=== PATIENT | male | born 1985 | race Caucasian/White ===

== ENCOUNTER 2017-11-23 11:08 | Emergency (ER) | payer OTHER ==
[~2017-11-23] VITALS: Ht 182.9 cm; Wt 118.0 kg
--- OUTSIDE RECORDS SUMMARY | ~2017-11-23 | XMS | Clinical Summary ---
Demographics + + + | Address | [address] | | | [place] [address] | + + + | Home Phone | | + + + | Preferred Language | Unknown | + + + | Marital Status | Single | + + + | Yazidism Affiliation | 1013 | + + + | Race | Unknown | + + + | Ethnic Group | Unknown | + + + Author + + + | Author | [facility] [facility] | + + + | Organization [...] Team Providers + +------+ + | Care Tank Officer Name | Role | Phone | + +------+ + | Medicine, [place] | PP | Unavailable | | Family | | | + +------+ + Allergies + + [...]
--- OUTSIDE RECORDS SUMMARY | ~2017-11-23 | XMS | Clinical Summary ---
Demographics + + + | Address | [address] | | | [place] [address] | + + + | Home Phone | | + + + | Preferred Language | Unknown | + + + | Marital Status | Single | + + + | Jainism Affiliation | 1013 | + + + | Race | Unknown | + + + | Ethnic Group | Unknown | + + + Author + + + | Author | [facility] [facility] | + + + | Organization [...] Team Providers + +------+ + | Care Hop Strainer Name | Role | Phone | + +------+ + | Medicine, [place] | PP | Unavailable | | Family [...]
[~2017-11-23 11:08] MED LIST: FLEXERIL10 MG PO; HYDROCODON-ACE1 EAC8 PO; TYLENOL EXTRA500 MG PO; ULTRAM50 MG PO
[2017-11-23] MEDS ORDERED: BACTRIM DS TAB1 EACH PO (11:58)
== END 2017-11-23 12:05 | disposition home or self-care (01) ==
LOC: ED 11:08
DX: L25.8 Unspecified contact dermatitis due to other agents (principal); B96.89 Other specified bacterial agents as the cause of diseases classified elsewhere; F17.200 Nicotine dependence, unspecified, uncomplicated; Z88.0 Allergy status to penicillin
CPT/HCPCS: 99283

== ENCOUNTER 2018-07-08 11:09 | Emergency (ER) | payer OTHER ==
[~2018-07-08] VITALS: Ht 182.9 cm; Wt 109.0 kg
--- OUTSIDE RECORDS SUMMARY | ~2018-07-08 | XMS | Clinical Summary ---
Demographics + + + | Address | [address] | | | [place] [address] | + + + | Home Phone | | + + + | Preferred Language | Unknown | + + + | Marital Status | Single | + + + | Alevism Affiliation | 1013 | + + + | Race | Unknown | + + + | Ethnic Group | Unknown | + + + Author + + + | Author | [facility] [facility] | + + + | Organization | [facility] | + + + | Address | Unknown | + + + | Phone | Unavailable | + + + Support + + +---------+ + | Name | Relationship | Address | Phone | + + +---------+ + | Day [place] | ECON | Unknown | | + + +---------+ + Care Team Providers + +------+ + | Care Costume Shop Coordinator Name | Role | Phone | + +------+ + | Dr. Kaylin | PP | Unavailable | + +------+ + Allergies + + + + + + | Active Allergy | Reactions | Severity | Noted | Comments | | | | | Date | | + + + + + + | Penicillins | Rash | Medium | 09/12/19 | | | | | | 12 | | + + + + + + Current Medications No known medications Active Problems Not on file Social History + +-------+ +--------+------+ | Tobacco Use | Types | Packs/Day | Years | Date | | | | | Used | | + +-------+ +--------+------+ | Never Assessed | | | | | + +-------+ +--------+------+ + + + | Sex Assigned at | Date Recorded | | | | + + + | Not on file | | + + + Last Filed Vital Signs + + + + | Vital Sign | Reading | Time Taken | + + + + | Blood Pressure | 117/68 | 09/13/2011 1:00 PM PDT | + + + + | Pulse | 53 | 09/13/2011 1:00 PM PDT | + + + + | Temperature | 37.8 C (100 F) | 09/13/2011 1:00 PM PDT | + + + + | Respiratory Rate | 18 | 09/13/2011 1:00 PM PDT | + + + + | Oxygen Saturation | 100% | 09/13/2011 1:00 PM PDT | + + + + | Inhaled Oxygen | - | - | | Concentration | | | + + + + | Weight | 91 kg (200 lb 11.2 | 09/13/2011 9:47 AM PDT | | | oz) | | + + + + | Height | 182.9 cm (6') | 09/12/2011 11:19 AM PDT | + + + + | Body Mass Index | 27.22 | 09/13/2011 9:47 AM PDT | + + + + Plan of Treatment Not on file Results Not on filefrom Last 3 Months"
--- OUTSIDE RECORDS SUMMARY | ~2018-07-08 | XMS | Clinical Summary ---
Demographics + + + | Address | [address] | | | [place] [address] | + + + | Home Phone | | + + + | Preferred Language | Unknown | + + + | Marital Status | Single | + + + | Catholic Affiliation | 1013 | + + + | Race | Unknown | + + + | Ethnic Group | Unknown | + + + Author + + + | Author | [facility] [facility] | + + + | Organization [...] Providers + +------+ + | Care Tank Processor Name | Role | Phone | + [...]
[~2018-07-08 11:09] MED LIST changes: +BACTRIM DS TAB1 EACH PO
--- OUTSIDE RECORDS SUMMARY | 2018-07-08 11:12 | XMS ---
PreManage Notification: CARMITA HALL Security Supervisor Plastic Sheets Events No recent Security Events currently on file CRITERIA MET - Group Notification CARE PROVIDERS OLGA WATTERS Physician Access Control Officer 11/28/2017-Current PHONE: [phone] Kylah has no Care Guidelines for this patient. EGloria VISIT COUNT (12 MO.) 2 [facility] TOTAL 2 NOTE: Visits indicate total known visits. ED/UCC VISIT TRACKING (12 MO.) 07/08/2018 11:10 [facility] TYPE: Emergency COMPLAINT: - BLOOD IN STOOL/ABD PAIN 11/23/2017 11:09 [facility] TYPE: Emergency COMPLAINT: - POSS ABSCESS DIAGNOSES: - Allergy status to penicillin - Nicotine dependence, unspecified, uncomplicated - Other specified bacterial agents as the cause of diseases classified elsewhere - Other specified disorders of penis - Unspecified contact dermatitis due to other agents INPATIENT VISIT TRACKING (12 MO.) No inpatient visits to display in this time frame [id number]
[2018-07-08] MEDS ORDERED: MINOCYCLINE HC100 MG PO (11:36)
== END 2018-07-08 14:12 | disposition home or self-care (01) ==
LOC: ED 11:09
DX: K62.5 Hemorrhage of anus and rectum (principal); F17.200 Nicotine dependence, unspecified, uncomplicated; Z88.0 Allergy status to penicillin
CPT/HCPCS: 80053; 85025; 99283

== ENCOUNTER 2020-03-18 15:52 | Emergency (ER) | payer OTHER ==
[~2020-03-18] VITALS: Ht 182.9 cm; Wt 106.7 kg
[~2020-03-18 15:52] MED LIST changes: +MINOCYCLINE HC100 MG PO
[2020-03-18] MEDS ORDERED: CYCLOBENZAPRINE10 MG PO (19:07)
[2020-03-18] MEDS ORDERED: PREDNISONE20 MG PO (19:07)
[2020-03-18] MEDS ORDERED: NORCO 5-325 TA1 EACH PO (19:07)
== END 2020-03-18 19:20 | disposition home or self-care (01) ==
LOC: ED 15:52
DX: S39.012A Strain of muscle, fascia and tendon of lower back, initial encounter (principal); X50.9XXA Other and unspecified overexertion or strenuous movements or postures, initial encounter; F17.200 Nicotine dependence, unspecified, uncomplicated; Z88.0 Allergy status to penicillin
CPT/HCPCS: 72100; 96374; 96375; 99283-25; J1100; J1885

== ENCOUNTER 2022-12-15 09:59 | Emergency (ER) | payer OTHER ==
[~2022-12-15] VITALS: Ht 182.9 cm; Wt 102.6 kg
--- OUTSIDE RECORDS SUMMARY | ~2022-12-15 | XMS | Continuity of Care Document ---
Demographics + + + | Address | [address] | | | [place] [address] | + + + | Preferred Language | Unknown | + + + | Marital Status | Polygamous | + + + | Orthodox Affiliation | Unknown | + + + | Race | White | + + + | Ethnic Group | Not or | + + + Author + + + | Author | [facility] | + + + | Organization | [facility] | + + + | Address | [address] | | | [place] [address] | + + + | Phone | | + + + Care Team Providers + + + + | Care Component Inspector Name | Role | Phone | + + + + Unavailable | Unavailable | + + + + Unavailable | Unavailable | + + + + Allergies and Intolerances + + + + + + | date | description | facility | reaction | severity | + + + + + + | (no date) | Rash | [facility] | (no reaction) | (no severity) | [facility] | | | + + + + + + | (no date) | Penicillin | [facility] | (no reaction) | (no severity) | | [facility] | | | + + + + + + | (no date) | Penicillin | [facility] | (no reaction) | (no severity) | | [facility] | | | + + + + + + | (no date) | Penicillins | [facility] | (no reaction) | (no severity) | + + + + + + | (no date) | Penicillin | [facility] | (no reaction) | (no severity) | | [facility] | | | + + + + + + | (no date) | Penicillin | [facility] | (no reaction) | (no severity) | | [facility] | | | + + + + + + Encounters No information. Functional Status No information. Immunizations No information. Medications + + + + | date | description | facility | + + + + | 2022-09-27 00:00 | MINOCYCLINE HCL | [facility] | + + + + | 2022-09-27 00:00 | ACETAMINOPHEN | [facility] | + + + + | 2022-09-27 00:00 | CYCLOBENZAPRINE HCL | [facility] | + + + + | 2015-05-07 00:00 | TRAMADOL HCL | [facility] | + + + + | 2017-11-23 00:00 | | [facility] | | | SULFAMETHOXAZOLE/TRIMETHOPR | | | | IM DS | | + + + + | 2013-03-30 00:00 | HYDROCODONE | [facility] | | | BIT/ACETAMINOPHEN | | + + + + Problems + + + + | date | description | facility | + + + + | 2015-04-13 00:00 | Hematochezia | [facility] | + + + + | 2017-11-23 00:00 | Dermatitis | [facility] | + + + + | 2017-11-23 00:00 | Encounter for medical | [facility] | | | screening examination | | + + + + | 2018-07-08 00:00 | Bright red blood per | [facility] | | | rectum | | + + + + | 2020-03-18 00:00 | Acute myofascial strain of | [facility] | | | lumbar region | | + + + + | 2021-07-26 00:00 | Patient left without being | [facility] | | | seen | | + + + + | 2022-09-27 00:00 | Non-ST elevation | [facility] | | | myocardial infarction | | | | (NSTEMI) | | + + + + | 2022-09-27 07:35 | NICOTINE DEPENDENCE, | [facility] | | | UNSPECIFIED, UNCOMPLICATED | | + + + + | 2022-09-27 07:35 | NON-ST ELEVATION (NSTEMI) | [facility] | | | MYOCARDIAL INFARCTION | | + + + + | 2022-09-27 07:35 | CHEST PAIN, UNSPECIFIED | [facility] | + + + + | 2022-09-27 07:35 | ALLERGY STATUS TO | [facility] | | | PENICILLIN | | + + + + | 2022-10-21 08:40 | NON-ST ELEVATION (NSTEMI) | [facility] | | | MYOCARDIAL INF | | + + + + | 2022-10-21 08:40 | NON-ST ELEVATION (NSTEMI) | [facility] | | | MYOCARDIAL INFARCTION | | + + + + | 2022-10-21 08:40 | PRESENCE OF CORONARY | [facility] | | | ANGIOPLASTY IMPLANT | | + + + + | 2022-10-21 09:00 | NON-ST ELEVATION (NSTEMI) | [facility] | | | MYOCARDIAL INF | | + + + + | 2022-10-21 09:00 | PRESENCE OF CORONARY | [facility] | | | ANGIOPLASTY IMPLANT | | + + + + Procedures No information. Results/Labs +--------+--------+ +---------+--------+---------+ | test | date | facility | value | unit | notes | +--------+--------+ +---------+--------+---------+ + + | Result panel 1 | + + + + + +--------+ + + | | 2022-09-27 | [facility] | 13.2 | (missing) | (missing) | | (unavailable | [facility] | | | | + + + +--------+ + + + + | Result panel 2 | + + + + + +--------+ + + | | 2022-09-27 | [facility] | 71.8 | (missing) | (missing) | | (unavailable | [facility] | | | | + + + +--------+ + + + + | Result panel 3 | + + + + + +--------+ + + | | 2022-09-27 | [facility] | 18.2 | (missing) | (missing) | | (unavailable | [facility] | | | | + + + +--------+ + + + + | Result panel 4 | + + + + + +-------+ + + | | 2022-09-27 | [facility] | 8.0 | (missing) | (missing) | | (unavailable | [facility] | | | | + + + +-------+ + + + + | Result panel 5 | + + + + + +-------+ + + | | 2022-09-27 | [facility] | 1.2 | (missing) | (missing) | | (unavailable | [facility] | | | | + + + +-------+ + + + + | Result panel 6 | + + + + + +-------+ + + | | 2022-09-27 | [facility] | 0.8 | (missing) | (missing) | | (unavailable | [facility] | | | + + + +-------+ + + + + | Result panel 7 | + + + + + +-------+---------+ + | | 2022-09-27 | [facility] | 116 | mg/dL | (missing) | | (unavailable | [facility] | | | + + + +-------+---------+ + + + | Result panel 8 | + + + + + +------+---------+ + | | 2022-09-27 | [facility] | 12 | mg/dL | (missing) | | (unavailable | [facility] | | | | + + + +------+---------+ + + + | Result panel 9 | + + + + + +--------+---------+ + | | 2022-09-27 | [facility] | 1.11 | mg/dL | (missing) | | (unavailable | [facility] | | | + + + +--------+---------+ + + + | Result panel 10 | + + + + + +------+ + + | | 2022-09-27 | [facility] | 87 | (missing) | (missing) | | (unavailable | [facility] | | | + + + +------+ + + + + | Result panel 11 | + + + + + +---------+ + + | | 2022-09-27 | [facility] | 10.81 | (missing) | (missing) | | (unavailable | [facility] | | | + + + +---------+ + + + + | Result panel 12 | + + + + + +--------+ + + | | 2022-09-27 | [facility] | 5.33 | (missing) | (missing) | | (unavailable | [facility] | | | + + + +--------+ + + + + | Result panel 13 | + + + + + +-------+ + + | | 2022-09-27 | [facility] | 136 | (missing) | (missing) | | (unavailable | [facility] | | | + + + +-------+ + + + + | Result panel 14 | + + + + + +-------+ + + | | 2022-09-27 | [facility] | 3.5 | (missing) | (missing) | | (unavailable | [facility] | | | + + + +-------+ + + + + | Result panel 15 | + + + + + +-------+ + + | | 2022-09-27 | [facility] | 100 | (missing) | (missing) | | (unavailable | [facility] | | | + + + +-------+ + + + + | Result panel 16 | + + + + + +------+ + + | | 2022-09-27 | [facility] | 27 | (missing) | (missing) | | (unavailable | [facility] | | | + + + +------+ + + + + | Result panel 17 | + + + + + +--------+ + + | | 2022-09-27 | [facility] | 12.5 | (missing) | (missing) | | (unavailable | [facility] | | | + + + +--------+ + + + + | Result panel 18 | + + + + + +-------+---------+ + | | 2022-09-27 | [facility] | 8.8 | mg/dL | (missing) | | (unavailable | [facility] | | | + + + +-------+---------+ + + + | Result panel 19 | + + + + + +-------+---------+ + | | 2022-09-27 | [facility] | 2.1 | mg/dL | (missing) | | (unavailable | [facility] | | | + + + +-------+---------+ + + + | Result panel 20 | + + + + + +-------+ + + | | 2022-09-27 | [facility] | 7.5 | (missing) | (missing) | | (unavailable | [facility] | | | + + + +-------+ + + + + | Result panel 21 | + + + + + +-------+ + + | | 2022-09-27 | [facility] | 3.7 | (missing) | (missing) | | (unavailable | [facility] | | | + + + +-------+ + + + + | Result panel 22 | + + + + + +-------+ + + | | 2022-09-27 | [facility] | 3.8 | (missing) | (missing) | | (unavailable | [facility] | | | + + + +-------+ + + + + | Result panel 23 | + + + + + +--------+ + + | | 2022-09-27 | [facility] | 16.8 | (missing) | (missing) | | (unavailable | [facility] | | | + + + +--------+ + + + + | Result panel 24 | + + + + + +--------+ + + | | 2022-09-27 | [facility] | 0.97 | (missing) | (missing) | | (unavailable | [facility] | | | + + + +--------+ + + + + | Result panel 25 | + + + + + +-------+ + + | | 2022-09-27 | [facility] | 1.3 | (missing) | (missing) | | (unavailable | [facility] | | | + + + +-------+ + + + + | Result panel 26 | + + + + + +------+ + + | | 2022-09-27 | [facility] | 43 | (missing) | (missing) | | (unavailable | [facility] | | | + + + +------+ + + + + | Result panel 27 | + + + + + +------+ + + | | 2022-09-27 | [facility] | 33 | (missing) | (missing) | | (unavailable | [facility] | | | + + + +------+ + + + + | Result panel 28 | + + + + + +------+ + + | | 2022-09-27 | [facility] | 75 | (missing) | (missing) | | (unavailable | [facility] | | | + + + +------+ + + + + | Result panel 29 | + + + + + +------+ + + | | 2022-09-27 | [facility] | 67 | (missing) | (missing) | | (unavailable | [facility] | | | + + + +------+ + + + + | Result panel 30 | + + + + + + + + + | | 2022-09-27 | [facility] | 2509.3 | (missing) | (missing) | | (unavailable | [facility] | | | + + + + + + + + + | Result panel 31 | + + + + + +--------+ + + | | 2022-09-27 | [facility] | 49.6 | (missing) | (missing) | | (unavailable | [facility] | | | + + + +--------+ + + + + | Result panel 32 | + + + + + +--------+ + + | | 2022-09-27 | [facility] | 93.1 | (missing) | (missing) | | (unavailable | [facility] | | | + + + +--------+ + + + + | Result panel 33 | + + + + + +--------+ + + | | 2022-09-27 | [facility] | 31.5 | (missing) | (missing) | | (unavailable | [facility] | | | + + + +--------+ + + + + | Result panel 34 | + + + + + +--------+ + + | | 2022-09-27 | [facility] | 33.8 | (missing) | (missing) | | (unavailable | [facility] | | | + + + +--------+ + + + + | Result panel 35 | + + + + + +--------+ + + | | 2022-09-27 | [facility] | 13.3 | (missing) | (missing) | | (unavailable | [facility] | | | + + + +--------+ + + + + | Result panel 36 | + + + + + +-------+ + + | | 2022-09-27 | [facility] | 244 | (missing) | (missing) | | (unavailable | [facility] | | | + + + +-------+ + + Social History No information. Vital Signs + + + +---------+ | date | measurement | value | units | + + + +---------+ | 2022-09-27 00:00 | BMI | 30.7 | kg/m2 | + + + +---------+ | 2022-09-27 00:00 | BP_diastolic | 83 | mmHg | + + + +---------+ | 2022-09-27 00:00 | BP_systolic | 127 | mmHg | + + + +---------+ | 2022-09-27 00:00 | heart_rate | 71 | /min | + + + +---------+ | 2022-09-27 00:00 | height_metric | 182.88 | cm | + + + +---------+ | 2022-09-27 00:00 | height_standard | 72 | in | + + + +---------+ | 2022-09-27 00:00 | o2_saturation | 94 | % | + + + +---------+ | 2022-09-27 00:00 | respiration_rate | 18 | /min | + + + +---------+ | 2022-09-27 00:00 | temperature_metric | 36.89 | C | | | | | | + + + +---------+ | 2022-09-27 00:00 | | 98.4 | F | | | temperature_standar | | | | | d | | | + + + +---------+ | 2022-09-27 00:00 | weight_metric | 102.6 | kg | + + + +---------+ | 2022-09-27 00:00 | weight_standard | 226.19 | lb | + + + +---------+"
[~2022-12-15 09:59] MED LIST changes: +ACETAMINOPHEN500 MG PO; +CYCLOBENZAPRINE10 MG PO; +NORCO 5-325 TA1 EACH PO; +PREDNISONE20 MG PO
[2022-12-15] MEDS ORDERED: CARVEDILOL3.125 MG PO (10:11)
[2022-12-15] MEDS ORDERED: ATORVASTATIN CA80 MG PO (10:11)
[2022-12-15] MEDS ORDERED: LISINOPRIL5 MG PO (10:11)
[2022-12-15] MEDS ORDERED: CLOPIDOGREL75 MG PO (10:11)
[2022-12-15] MEDS ORDERED: VENTOLIN HFA18 GM INH (10:12)
[2022-12-15 10:24] LABS: BASOPHILS 0.5 % (0-2); EOSINOPHILS 1.9 % (0-6); HEMOGLOBIN 16.2 g/dL (12.0-18.0); LYMPHOCYTES 30.4 % (24-44); MCH 32.5 (27-36); MCHC 34.5 g/dl (30-36); MCV 94.2 fl (81-99); MONOCYTES 6.3 % (0-12); NEUTROPHILS 60.9 % (39-80); PLATELET COUNT 233 K/uL (140-440); RBC 4.99 M/ul (4.3-5.7); RDW 12.9 (10.5-15.0)
[2022-12-15 10:40] LABS: ALBUMIN 4.2 g/dL (3.4-5.0); ALBUMIN/GLOBULIN RATIO 1.24 (1.1-2.4); BILIRUBIN, TOTAL 1.3 ng/dL (0.2-1.0); BUN/CREATININE RATIO 18.75 (6.0-28.6); CALCIUM 9.3 mg/dL (8.5-10.1); CREATININE, SERUM 0.96 mg/dL (0.70-1.30); PROTEIN, TOTAL 7.6 g/dL (6.4-8.2)
[2022-12-15] MEDS ORDERED: NITROGLYCERIN0.4 MG SL (13:18)
[2022-12-15 13:46] VITALS: BP 119/79
--- NOTE | 2022-12-17 17:06 | EKG ---
[facility] [address] [facility] [place] [address] Signed Normal sinus rhythm Normal ECG When compared with ECG of 15-DEC-2022 10:01, (Unconfirmed) No significant change was found Confirmed by SLY MARIE MD ([id number]) on 12/17/2022 5:06:35 PM Electronically Signed By: SLY MARIE 12/17/22 1706 PATIENT NAME: ISABELCARMITA JR Electrocardiogram DATE OF : 83 PHYSICIAN: SLY MARIE REPORT #: [id number] REPORT IS CONFIDENTIAL AND NOT TO BE RELEASED WITHOUT AUTHORIZATION
== END 2022-12-15 13:45 | disposition home or self-care (01) ==
LOC: ED 09:59
PROVIDERS: Emergency Medicine
DX: R07.9 Chest pain, unspecified (principal); I25.2 Old myocardial infarction; F17.200 Nicotine dependence, unspecified, uncomplicated; Z88.0 Allergy status to penicillin; Z79.899 Other long term (current) drug therapy
CPT/HCPCS: 36415; 71045; 80053; 84484; 85025; 93005; 93010; 99285-25; 99406

== ENCOUNTER 2023-12-26 06:19 | Emergency (ER) | payer OTHER ==
[~2023-12-26] VITALS: Ht 182.9 cm; Wt 94.0 kg
[~2023-12-26 06:19] MED LIST changes: +ATORVASTATIN CA80 MG PO; +CARVEDILOL3.125 MG PO; +CLOPIDOGREL75 MG PO; +LISINOPRIL5 MG PO; +NITROGLYCERIN0.4 MG SL; +VENTOLIN HFA18 GM INH
[2023-12-26] MEDS ORDERED: NITROGLYCERIN PACKET TOP ONE (06:30)
[2023-12-26] MEDS ORDERED: MORPHINE SULFATE 4 MG/ML VIAL IV ONE (06:30)
[2023-12-26 06:33] LABS: BASOPHILS 0.8 % (0-2); EOSINOPHILS 3.2 % (0-6); HEMATOCRIT 47.1 % (35.0-50.0); HEMOGLOBIN 15.6 g/dL (12.0-18.0); LYMPHOCYTES 23.4 % (24-44); MCH 31.7 (27-36); MCHC 33.1 g/dl (30-36); MCV 95.8 fl (81-99); MONOCYTES 10.2 % (0-12); NEUTROPHILS 62.4 % (39-80); PLATELET COUNT 241 K/uL (140-440); RBC 4.92 M/ul (4.3-5.7); RDW 13.5 (10.5-15.0)
[2023-12-26] MEDS ORDERED: ASPIRIN81 MG PO (06:48)
[2023-12-26 06:49] LABS: INR 0.88 (0.80-1.30); PROTIME 11.5 Sec (11.2-14.2)
[2023-12-26] MEDS ORDERED: METOPROLOL SUCC25 MG PO (06:49)
[2023-12-26 06:56] LABS: ALBUMIN 3.6 g/dL (3.4-5.0); ALBUMIN/GLOBULIN RATIO 1.03 (1.1-2.4); ALKALINE PHOSPHATASE 77 U/L (46-116); ALT (SGPT) 33 U/L (14-59); ANION GAP 15.1 (7-21); AST (SGOT) 16 U/L (15-37); BILIRUBIN, TOTAL 0.3 ng/dL (0.2-1.0); BUN/CREATININE RATIO 20.33 (6.0-28.6); CALCIUM 9.4 mg/dL (8.5-10.1); CARBON DIOXIDE 25 mmol/L (21-32); CHLORIDE 104 mmol/L (98-107); CREATININE, SERUM 1.18 mg/dL (0.70-1.30); GLOMERULAR FILTRATION RATE,EST 81 mL/min (>60); MAGNESIUM 1.7 mg/dL (1.8-2.4); POTASSIUM 4.1 mmol/L (3.5-5.1); PROTEIN, TOTAL 7.1 g/dL (6.4-8.2); UREA NITROGEN 24 mg/dL (7-18)
[2023-12-26] MEDS ORDERED: ASPIRIN 81 MG CHEW PO ONE (07:15)
[2023-12-26] MEDS ORDERED: SODIUM CHLORIDE 0.9% 500 ML IV PRN (07:15)
[2023-12-26 09:08] VITALS: BP 108/61
--- NOTE | 2023-12-28 12:26 | EKG ---
[facility] [address] [facility] [place] [address] Signed Normal sinus rhythm Normal ECG When compared with ECG of 15-DEC-2022 10:02, No significant change was found Confirmed by Manjit Malhotra MD ([id number]) on 12/28/2023 12:26:10 PM Electronically Signed By: MANJIT MALHOTRA DO 12/28/23 1226 PATIENT NAME: DUNGLEXCARMITA JR Electrocardiogram DATE OF : 83 PHYSICIAN: MANJIT MALHOTRA DO REPORT #: [id number] REPORT IS CONFIDENTIAL AND NOT TO BE RELEASED WITHOUT AUTHORIZATION
== END 2023-12-26 09:09 | disposition home or self-care (01) ==
LOC: ED 06:19
PROVIDERS: Family Medicine
DX: R07.9 Chest pain, unspecified (principal); I25.2 Old myocardial infarction; F17.200 Nicotine dependence, unspecified, uncomplicated; Z95.5 Presence of coronary angioplasty implant and graft; Z79.82 Long term (current) use of aspirin; Z79.899 Other long term (current) drug therapy; Z88.0 Allergy status to penicillin
CPT/HCPCS: 36415; 71045; 80053; 83735; 83880; 84484; 85025; 85379; 85610; 93005; 93010; 96374; 99285-25; A9270; J2270; J7040